=== PATIENT | female | born 1960 | race Caucasian/White ===

== ENCOUNTER 2017-03-05 15:57 | Emergency (ER) | payer MEDICARE | END 2017-03-05 17:36 | disposition home or self-care (01) | LOC: ER 15:57 | DX: K02.9 Dental caries, unspecified (principal); K05.00 Acute gingivitis, plaque induced; F17.210 Nicotine dependence, cigarettes, uncomplicated; Z88.8 Allergy status to other drugs, medicaments and biological substances ==